=== PATIENT | male | born 1955 | race Caucasian/White ===

== ENCOUNTER 2023-03-08 15:34 | Inpatient (IN) | payer BC, MEDICARE ==
[2023-03-08 16:27] LABS: #Eosinphils 0.1 thou/uL (0.0-0.7); #Monocytes 0.6 thou/uL (0.11-0.59); %Basophils 0.5 % (0.0-1.0); %Eosinophils 0.8 % (0.0-10.0); %Monocytes 7.5 % (0.0-10.0); %Neutrophils 66.9 % (42.0-75.0); Hematocrit 41.2 % (42.0-52.0); Hemoglobin 14.1 g/dL (14.0-18.0); Mean Corpuscular HGB CONC 34.2 g/dL (32.0-36.0); Mean Corpuscular Hemoglobin 30.7 pg (27.0-31.0); Mean Corpuscular Volume 89.8 fl (78.0-98.0); Mean Platelet Volume 10.2 fL (7.4-10.4); Platelet Count 185 10x3/uL (130-400); RBC Distribution Width 12.7 % (11.5-14.5); Red Blood Cell (RBC) Count 4.59 mill/uL (4.70-6.10); White Blood Cell (WBC) Count 7.5 10x3/uL (4.8-10.8)
[2023-03-08 16:51] LABS: ALT (SGPT) 19 U/L (8-55); AST (SGOT) 17 U/L (5-34); Albumin 4.1 g/dL (3.4-4.8); Alkaline Phosphatase 48 U/L (40-110); Anion Gap 10 mmol/L (10-20); BUN (Urea Nitrogen) 25 mg/dL (8.4-25.7); Bilirubin, Total 0.4 mg/dL (0.2-1.2); Calc. Creatinine Clearance 0 mL/min (70-130); Calcium 9.6 mg/dL (7.8-10.44); Carbon Dioxide 27 mmol/L (23-31); Chloride 108 mmol/L (98-107); Estimated GFR 89; Globulin 2.3 g/dL (2.4-3.5); Glucose 98 mg/dL (80-115); Protein, Total 6.4 g/dL (5.8-8.1); Sodium 141 mmol/L (136-145)
[2023-03-08 16:54] LABS: Troponin I 0.023 ng/mL (< 0.028)
[2023-03-08] MEDS ORDERED: Senokot S 8.6-50 MG TAB PO PRN (21:11)
[2023-03-08] MEDS ORDERED: Ondansetron ODT 4 MG TAB PO PRN (21:11)
[2023-03-08] MEDS ORDERED: Acetaminophen 325 MG TAB PO PRN (21:11)
[2023-03-08 22:05] LABS: Troponin I 0.017 ng/mL (< 0.028)
[2023-03-08 22:57] VITALS: BMI 29.0
[2023-03-09 01:09] LABS: Troponin I 0.017 ng/mL (< 0.028)
[2023-03-09 04:10] LABS: #Eosinphils 0.1 thou/uL (0.0-0.7); #Monocytes 0.5 thou/uL (0.11-0.59); #Neutrophils 2.8 thou/uL (1.40-6.50); %Basophils 0.7 % (0.0-1.0); %Eosinophils 1.9 % (0.0-10.0); %Lymphocytes 40.6 % (21.0-51.0); %Neutrophils 47.6 % (42.0-75.0); Hematocrit 39.2 % (42.0-52.0); Hemoglobin 13.2 g/dL (14.0-18.0); Mean Corpuscular HGB CONC 33.7 g/dL (32.0-36.0); Mean Corpuscular Hemoglobin 30.6 pg (27.0-31.0); Mean Corpuscular Volume 90.7 fl (78.0-98.0); Mean Platelet Volume 10.2 fL (7.4-10.4); Platelet Count 170 10x3/uL (130-400); RBC Distribution Width 12.7 % (11.5-14.5); Red Blood Cell (RBC) Count 4.32 mill/uL (4.70-6.10); White Blood Cell (WBC) Count 5.9 10x3/uL (4.8-10.8)
[2023-03-09 04:37] LABS: BUN (Urea Nitrogen) 26 mg/dL (8.4-25.7); Calc. Creatinine Clearance 133 mL/min (70-130); Calcium 9.1 mg/dL (7.8-10.44); Carbon Dioxide 25 mmol/L (23-31); Cardiac Risk 2.5 (Less than 4.5); Chloride 109 mmol/L (98-107); Cholesterol 130 mg/dl (< 200 Desired); Estimated GFR 99; Glucose 101 mg/dL (80-115); HDL Cholesterol 53 mg/dL (>60 Neg Risk); LDL Cholesterol, Calculated 70 mg/dL; Magnesium 1.8 mg/dL (1.6-2.6); Potassium 3.7 mmol/L (3.5-5.1); Sodium 142 mmol/L (136-145); Triglycerides 34 mg/dL (Less than 150)
[2023-03-09 04:47] LABS: Anion Gap 11 mmol/L (10-20)
[2023-03-09] MEDS: Aspirin Chewable 81 MG TAB PO SCH (11:22)
[2023-03-09] MEDS: Famotidine 20 MG TAB PO SCH ×2 (11:22→20:09)
[2023-03-10] MEDS: Sodium Chloride 0.9% 1,000 ML IV SCH ×2 (05:54→17:17)
[2023-03-10] MEDS ORDERED: Midazolam HCl 2 mg/2 ml Vial ONE (06:25)
[2023-03-10] MEDS ORDERED: Nitroglycerin 50 MG/250 ML BOT 0 ML ONE (06:26)
[2023-03-10] MEDS ORDERED: Heparin 10,000 UNITS/ 10 ML VIAL ONE ×2 (06:26→08:30)
[2023-03-10] MEDS ORDERED: fentaNYL 50 mcg/mL 1 mL Vial ONE ×2 (06:26→08:52)
[2023-03-10] MEDS ORDERED: Lidocaine 1% (PF) 30 ML VIAL ONE (06:26)
[2023-03-10] MEDS ORDERED: Nitroglycerin 50 MG/250 ML BOT 250 ML ONE (08:19)
[2023-03-10] MEDS ORDERED: TICAGRELOR 90 MG TABLET ONE (09:01)
[2023-03-10] MEDS ORDERED: Iopamidol 370 76% 100 ML VIAL ONE (09:33)
[2023-03-10] MEDS ORDERED: fentaNYL 50 mcg/mL 1 mL Vial SLOW IVP PRN (09:48)
[2023-03-10] MEDS: Famotidine 20 MG TAB PO SCH ×2 (10:15→21:06)
[2023-03-10] MEDS: Aspirin Chewable 81 MG TAB PO SCH (10:15)
[2023-03-10] MEDS ORDERED: Amlodipine 5 MG TAB PO SCH (16:30)
[2023-03-10] MEDS: TICAGRELOR 90 MG TABLET PO SCH (20:56)
[2023-03-11 05:20] LABS: #Eosinphils 0.1 thou/uL (0.0-0.7); #Monocytes 0.6 thou/uL (0.11-0.59); #Neutrophils 3.8 thou/uL (1.40-6.50); %Basophils 0.6 % (0.0-1.0); %Eosinophils 1.5 % (0.0-10.0); %Lymphocytes 32.9 % (21.0-51.0); %Neutrophils 55.9 % (42.0-75.0); Hematocrit 40.2 % (42.0-52.0); Hemoglobin 13.8 g/dL (14.0-18.0); Mean Corpuscular HGB CONC 34.3 g/dL (32.0-36.0); Mean Corpuscular Hemoglobin 30.8 pg (27.0-31.0); Mean Corpuscular Volume 89.7 fl (78.0-98.0); Mean Platelet Volume 10.3 fL (7.4-10.4); Platelet Count 161 10x3/uL (130-400); RBC Distribution Width 12.4 % (11.5-14.5); Red Blood Cell (RBC) Count 4.48 mill/uL (4.70-6.10); White Blood Cell (WBC) Count 6.9 10x3/uL (4.8-10.8)
[2023-03-11 05:51] LABS: ALT (SGPT) 15 U/L (8-55); AST (SGOT) 17 U/L (5-34); Albumin 3.5 g/dL (3.4-4.8); Alkaline Phosphatase 45 U/L (40-110); Anion Gap 10 mmol/L (10-20); BUN (Urea Nitrogen) 16 mg/dL (8.4-25.7); Bilirubin, Total 0.6 mg/dL (0.2-1.2); Calc. Creatinine Clearance 126 mL/min (70-130); Calcium 9.1 mg/dL (7.8-10.44); Carbon Dioxide 26 mmol/L (23-31); Chloride 107 mmol/L (98-107); Estimated GFR 98; Globulin 2.1 g/dL (2.4-3.5); Glucose 95 mg/dL (80-115); Potassium 3.6 mmol/L (3.5-5.1); Protein, Total 5.6 g/dL (5.8-8.1); Sodium 139 mmol/L (136-145)
[2023-03-11] MEDS: Aspirin Chewable 81 MG TAB PO SCH (07:44)
[2023-03-11] MEDS: Famotidine 20 MG TAB PO SCH (07:44)
[2023-03-11] MEDS: TICAGRELOR 90 MG TABLET PO SCH (07:44)
[2023-03-11] MEDS ORDERED: dilTIAZem CD 120 MG CAP PO SCH (09:00)
[2023-03-11] MEDS ORDERED: Amlodipine 5 MG TAB PO SCH (09:00)
[2023-03-11 09:23] VITALS: TEMP 97.6
[2023-03-11 10:44] VITALS: BP 128/78
== END 2023-03-11 11:15 | disposition home or self-care (01) | DRG 247 ==
LOC: ERS 15:34 → 2NO 20:59 → OBSVTOIN 03-09 14:52
PROVIDERS: ADMIT Student in an Organized Health Care Education/Training Program; ATTEND Family Medicine
PROC: 027034Z Dilation of Coronary Artery, One Artery with Drug-eluting Intraluminal Device, Percutaneous Approach (ICD-10-PCS; principal; 2023-03-10)
PROC: 4A023N7 Measurement of Cardiac Sampling and Pressure, Left Heart, Percutaneous Approach (ICD-10-PCS; 2023-03-10)
PROC: B2111ZZ Fluoroscopy of Multiple Coronary Arteries using Low Osmolar Contrast (ICD-10-PCS; 2023-03-10)
PROC: B2151ZZ Fluoroscopy of Left Heart using Low Osmolar Contrast (ICD-10-PCS; 2023-03-10)
DX: I25.118 Atherosclerotic heart disease of native coronary artery with other forms of angina pectoris (principal); E78.5 Hyperlipidemia, unspecified; Z95.1 Presence of aortocoronary bypass graft; Z79.82 Long term (current) use of aspirin; Z79.899 Other long term (current) drug therapy
CPT/HCPCS: 36415; 71045; 78452; 80048; 80053; 80061; 83735; 83880; 84484; 85025; 85347; 92928; 93005; 93010; 93017; 93459; 93798; 94760; 99152; 99153; A9500; C1725; C1769; C1874; C1887; C1894; C9600; G0378; J1644; J2001; J2250; J3010; J7050; Q9967